=== PATIENT | female | born 1970 | race Caucasian/White ===

== ENCOUNTER 2020-05-26 18:38 | Inpatient (IN) | payer MEDICAID, SELFPAY ==
[2020-05-26 18:53] VITALS: RESP 16; BMI 30.2
--- NOTE | 2020-05-26 18:59 | ED_ITS ---
HPI - General Adult General: Chief complaint: Psychiatric Symptoms Stated complaint: HI/SI Time Seen by Provider: 05/26/20 18:52 Source: patient Mode of arrival: ambulatory Limitations: no limitations History of Present Illness: HPI narrative: Marcela is a 49-year-old female who comes in complaining of suicidal ideation. She states she wants to go out into the [place] and take her medicines with her and overdose on medication. She states that she is just tired of life and has a poor outlook on life. She denies having any other complaints or concerns. Review of Systems General: Reports: Other (Patient not cooperative for this portion of history) Physical Exam Const: COMMON NORMALS: no acute distress, patient oriented x3, no limitations, healthy appearing and well nourished GENERAL APPEARANCE: cooperative, well kempt and well developed HENMT: COMMON NORMALS: normocephalic, atraumatic, external ears normal, EAC's normal and Normal external nose present HEAD & SCALP: normal to inspection, normocephalic and atraumatic FACE & SINUS: normal facial exam and face symmetric NOSE: Normal external nose present and Normal nares present EXTERNAL EAR: Yes external ears normal EXTERNAL AUDITORY CANAL: EAC's normal MOUTH: Normal oral and palatal mucosa present, lip normal and tongue normal Eye: COMMON NORMALS: Equal, round and reactive pupils present and conjunctivae normal GENERAL EYE: appearance normal, both eyes and all related structures ALIGNMENT: Yes alignment normal PERIORBITAL: periorbital findings normal EYELID: eyelids normal CONJUNCTIVA: Yes conjunctivae normal SCLERA: sclerae normal PUPIL: Yes Equal, round and reactive pupils present Neck/C-Spine: COMMON NORMALS: full ROM, no lymphadenopathy, supple, no meningeal signs and no JVD GENERAL: Yes normal visual inspection and Yes trachea midline Chest: COMMONS NORMALS: normal inspection of the chest and normal palpation of entire chest wall Resp: COMMON NORMALS: normal respiratory effort, No retractions and No use of accessory muscles EFFORT & INSPECTION: Yes able to speak in complete sentences and Yes symmetric chest movement AUSCULTATION: no crackles, no rales, no rhonchi and no wheezes Cardio: COMMON NORMALS: no JVD, regular rate, regular rhythm, S1 normal heart sound present and S2 normal heart sound present RATE: regular rate RHYTHM: regular rhythm HEART SOUNDS: S1 normal heart sound present, S2 normal heart sound present, no click, no gallops, no murmurs, no rubs and abnormal split S2 GI: COMMON NORMALS: Soft to palpation and No hepatosplenomegaly present PALPATION: Yes Soft to palpation, No Tenderness to palpation present (GI), No Guarding due to palpation present (GI), No Rigid due to palpation, Yes No hepatosplenomegaly present, No Hernia present, No Palpable mass present and No Pulsatile mass present : COMMON NORMALS: Yes no CVA tenderness BLADDER/KIDNEY EXAM: Yes no CVA tenderness EXTERNAL FEMALE EXAM: No Hernia present Back/Pelvis: COMMON NORMALS: no CVA tenderness, thoracic and lumbar spine normal to inspection, no thoracic nor lumbar tenderness and thoraco-lumbar ROM normal Extremity: COMMON NORMALS: normal to inspection, full ROM, capillary refill normal, no joint enlargement, no clubbing, cyanosis or edema and no calf tenderness Neuro: COMMON NORMALS: patient oriented x3, CN's II-XII intact bilaterally, moves all extremities, no focal motor deficits and no sensory deficits noted MENINGEAL SIGNS: Yes no meningeal signs SPEECH: speech normal Psych: APPEARANCE: Yes well kempt Skin: COMMON NORMALS: no rashes or lesions noted, turgor normal, no jaundice, no petechiae and no mottling GENERAL SKIN EXAM: no rashes or lesions noted and turgor normal Course Vital Signs: Vital signs: Vital Signs Temperature 98.0 F 05/26/20 22:00 Pulse Rate 85 05/26/20 22:00 Respiratory Rate 17 05/26/20 22:00 Blood Pressure 111/75 05/26/20 22:00 Pulse Oximetry 97 05/26/20 22:00 MDM - General Adult MDM Narrative: Medical decision making narrative: I see no evidence of anything to limit the patient from going to the neuropsychiatric unit. The case was reviewed with Dr. Miner and he is agreeable to admission. Lab Data: Labs: Lab Results 05/26/20 05/26/20 05/26/20 Range/Units 19:12 19:15 19:15 WBC 12.5 H (4.0-10.0) 10^3/ uL RBC 3.97 L (4.1-5.3) 10^6/u L Hgb 12.0 (11.5-15.3) g/dL Hct 37.3 (37.0-47.0) % MCV 94.0 (81-99) fL MCH 30.2 (28.0-34.0) pg MCHC 32.2 (30.0-36.0) g/dL RDW 13.0 (12.1-15.1) % Plt Count 275 (130-400) 10^3/c mm MPV 11.2 H (7.4-10.4) fL Neut % (Auto) 65.2 % Lymph % (Auto) 22.1 % Marion % (Auto) 6.9 % Eos % (Auto) 4.7 % Baso % (Auto) 0.7 % Neut # (Auto) 8.16 H (1.8-7.7) 10^3/u L Lymph # (Auto) 2.8 (0.8-4.8) 10^3/u L Marion # (Auto) 0.9 (0.2-0.9) 10^3/u L Eos # (Auto) 0.6 (0.0-0.8) 10^3/u L Baso # (Auto) 0.1 (0.0-0.1) 10^3/u L Nucleated RBC % (a uto) 0 % Nucleated RBCs # 0.0 /100WBC PT 11.80 (10.5-13.3) SECO NDS INR 0.85 (0.8-1.2) Sodium (136-145) mmol/L Potassium (3.5-5.1) mmol/L Chloride (98-107) mmol/L Carbon Dioxide (22-29) mmol/L Anion Gap (5-19) BUN (6-20) mg/dL Creatinine (0.5-0.9) mg/dL GFR Calculation (90-130) mL/min Glucose (65-115) mg/dL Calculated Osmolal ity (285-295) mOsm/k g Calcium (8.5-10.5) mg/dL Total Bilirubin (0.15-1.2) mg/dL AST (0-32) U/L ALT (0-33) U/L Alkaline Phosphata se (35-105) IU/L Total Protein (6.6-8.7) g/dL Albumin (3.5-5.2) g/dL Globulin (1.3-4.6) g/dL TSH (0.27-4.20) uIU/ mL HCG, Qual (Negative) Salicylates (3-10) mg/dL Urine Opiates Scre en Negative (Negative) ng/mL Acetaminophen (10-30) ug/mL Ur Barbiturates Sc reen Negative (Negative) ng/mL Phenytoin (10-20) ug/mL Valproic Acid (50-100) ug/mL Carbamazepine (4.0-12.0) ug/mL Ur Phencyclidine S crn Negative (Negative) ng/mL Ur Amphetamines Sc reen Negative (Negative) ng/mL U Benzodiazepines Scrn Negative (Negative) ng/mL [place] (0.6-1.2) mmol/L Urine Cocaine Scre en Negative (Negative) ng/mL U Marijuana (THC) Screen Positive H (Negative) ng/mL Ethyl Alcohol (0-10) mg/dL 05/26/20 05/26/20 05/26/20 Range/Units 19:15 19:15 19:15 WBC (4.0-10.0) 10^3/ uL RBC (4.1-5.3) 10^6/u L Hgb (11.5-15.3) g/dL Hct (37.0-47.0) % MCV (81-99) fL MCH (28.0-34.0) pg MCHC (30.0-36.0) g/dL RDW (12.1-15.1) % Plt Count (130-400) 10^3/c mm MPV (7.4-10.4) fL Neut % (Auto) % Lymph % (Auto) % Marion % (Auto) % Eos % (Auto) % Baso % (Auto) % Neut # (Auto) (1.8-7.7) 10^3/u L Lymph # (Auto) (0.8-4.8) 10^3/u L Marion # (Auto) (0.2-0.9) 10^3/u L Eos # (Auto) (0.0-0.8) 10^3/u L Baso # (Auto) (0.0-0.1) 10^3/u L Nucleated RBC % (a uto) % Nucleated RBCs # /100WBC PT (10.5-13.3) SECO NDS INR (0.8-1.2) Sodium 138 (136-145) mmol/L Potassium 4.3 (3.5-5.1) mmol/L Chloride 106 (98-107) mmol/L Carbon Dioxide 22 (22-29) mmol/L Anion Gap 14.3 (5-19) BUN 19 (6-20) mg/dL Creatinine 1.1 H (0.5-0.9) mg/dL GFR Calculation 52.6 L (90-130) mL/min Glucose 90 (65-115) mg/dL Calculated Osmolal ity 282 L (285-295) mOsm/k g Calcium 8.9 (8.5-10.5) mg/dL Total Bilirubin 0.2 (0.15-1.2) mg/dL AST 21 (0-32) U/L ALT 25 (0-33) U/L Alkaline Phosphata se 117 H (35-105) IU/L Total Protein 7.0 (6.6-8.7) g/dL Albumin 4.6 (3.5-5.2) g/dL Globulin 2.4 (1.3-4.6) g/dL TSH 2.80 (0.27-4.20) uIU/ mL HCG, Qual Negative (Negative) Salicylates < 0.3 L (3-10) mg/dL Urine Opiates Scre en (Negative) ng/mL Acetaminophen < 5.0 L (10-30) ug/mL Ur Barbiturates Sc reen (Negative) ng/mL Phenytoin 0.8 L (10-20) ug/mL Valproic Acid 2.8 L (50-100) ug/mL Carbamazepine 2.0 L (4.0-12.0) ug/mL Ur Phencyclidine S crn (Negative) ng/mL Ur Amphetamines Sc reen (Negative) ng/mL U Benzodiazepines Scrn (Negative) ng/mL [place] 0.1 L (0.6-1.2) mmol/L Urine Cocaine Scre en (Negative) ng/mL U Marijuana (THC) Screen (Negative) ng/mL Ethyl Alcohol < 10 (0-10) mg/dL Discharge Plan Discharge Patient Disposition: Placed in Observation Admit Provider: Kristofer Miner Clinical Impression: Suicidal ideation Condition: Stable Discharge Date/Time: 05/26/20 21:41 Coding Level of Care Code ED Field Service Engineer for Chg Fwd Exam Comprehensive
[2020-05-26 19:17] VITALS: BP 114/74; PULSE 91; RESP 18; TEMP 36.6; O2SAT 98
[2020-05-26 19:32] LABS: Basophils # 0.1 10^3/uL (0.0-0.1); Basophils % 0.7 %; Eosinophils # 0.6 10^3/uL (0.0-0.8); Eosinophils % 4.7 %; Hematocrit 37.3 % (37.0-47.0); Lymphocytes # 2.8 10^3/uL (0.8-4.8); Lymphocytes % 22.1 %; Mean Corpuscular HGB Conc 32.2 g/dL (30.0-36.0); Mean Corpuscular Hemoglobin 30.2 pg (28.0-34.0); Mean Platelet Volume 11.2 fL (7.4-10.4); Monocytes # 0.9 10^3/uL (0.2-0.9); Monocytes % 6.9 %; Neutrophils # 8.16 10^3/uL (1.8-7.7); Neutrophils % 65.2 %; Nucleated Red Blood Cells % 0 %; Platelet Count 275 10^3/cmm (130-400); Red Blood Count 3.97 10^6/uL (4.1-5.3); White Blood Count 12.5 10^3/uL (4.0-10.0)
[2020-05-26 19:43] LABS: INR 0.85 (0.8-1.2)
[2020-05-26 19:50] LABS: Amphetamines Screen Urine Negative (Negative); Barbiturates Screen Urine Negative (Negative); Benzodiazepines Screen Urine Negative (Negative); Cocaine Screen Urine Negative (Negative); Opiate Screen Urine Negative (Negative); PCP Screen Urine Negative (Negative); THC Screen Urine Positive (Negative)
[2020-05-26 19:54] LABS: HCG, Serum Qual Negative (Negative)
[2020-05-26 19:59] LABS: Lithium 0.1 mmol/L (0.6-1.2)
[2020-05-26 20:08] LABS: Alanine Aminotransferase 25 U/L (0-33); Albumin Level 4.6 g/dL (3.5-5.2); Alkaline Phosphatase 117 IU/L (35-105); Anion Gap 14.3 (5-19); Aspartate Amino Transferase 21 U/L (0-32); Blood Urea Nitrogen 19 mg/dL (6-20); Calcium 8.9 mg/dL (8.5-10.5); Carbon Dioxide 22 mmol/L (22-29); Chloride 106 mmol/L (98-107); Globulin 2.4 g/dL (1.3-4.6); Glomerular Filtration Rate 52.6 mL/min (90-130); Glucose 90 mg/dL (65-115); Osmolality Calculated 282 mOsm/kg (285-295); Phenytoin Dilantin 0.8 ug/mL (10-20); Potassium 4.3 mmol/L (3.5-5.1); Sodium 138 mmol/L (136-145); Total Bilirubin 0.2 mg/dL (0.15-1.2); Valproic Acid Level 2.8 ug/mL (50-100)
[2020-05-26 20:18] LABS: Acetaminophen < 5.0 ug/mL (10-30); Alcohol Level < 10 mg/dL (0-10); Salicylate < 0.3 mg/dL (3-10)
[2020-05-26 20:26] VITALS: BP 95/69; PULSE 84; RESP 16; O2SAT 98
[2020-05-26] MEDS: LORazepam 1 mg Tablet PO (20:55)
[2020-05-26 21:28] VITALS: BP 95/62; PULSE 82; RESP 18; O2SAT 99
[2020-05-26 22:00] VITALS: BP 111/75; PULSE 85; RESP 17; TEMP 36.7; O2SAT 97
[2020-05-27 06:00] VITALS: BP 103/71; PULSE 85; RESP 20; TEMP 37.1; O2SAT 96
[2020-05-27] MEDS: escitalopram 10 mg Tablet 20 MG PO (08:46)
[2020-05-27] MEDS: meloxicam 7.5 mg tablet 15 MG PO (08:46)
[2020-05-27] MEDS: baclofen 10 mg Tablet 20 MG PO ×3 (08:46→22:04)
[2020-05-27] MEDS: gabapentin 300 mg Capsule 600 MG PO ×3 (08:46→22:02)
[2020-05-27] MEDS: risperiDONE 0.25 mg Tablet 0.5 MG PO ×2 (08:47→17:02)
[2020-05-27] MEDS: cholecalciferol (vitamin D3) 1,000 unit Tablet 1000 UNIT PO (08:47)
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
[2020-05-27 14:00] VITALS: BP 98/61; PULSE 78; RESP 20; TEMP 37.1; O2SAT 99
[2020-05-27 20:30] VITALS: BP 94/68; PULSE 76; RESP 17; TEMP 36.2; O2SAT 96
[2020-05-27] MEDS: trazodone 50 mg Tablet PO (22:04)
[2020-05-27] MEDS: hyDROXYzine 25 mg Capsule 50 MG PO (22:04)
[2020-05-27] MEDS: quetiapine 300 mg Tablet PO (22:04)
[2020-05-27] MEDS: acetaminophen 325 mg Tablet 650 MG PO (22:14)
[2020-05-28] MEDS: acetaminophen 325 mg Tablet 650 MG PO (03:50)
[2020-05-28] MEDS: hyDROXYzine 25 mg Capsule 50 MG PO (03:50)
[2020-05-28 06:00] VITALS: BP 108/70; PULSE 86; RESP 12; TEMP 36.4; O2SAT 95
[2020-05-28] MEDS: risperiDONE 0.25 mg Tablet 0.5 MG PO (08:18)
[2020-05-28] MEDS: gabapentin 300 mg Capsule 600 MG PO ×2 (08:18→13:34)
[2020-05-28] MEDS: cholecalciferol (vitamin D3) 1,000 unit Tablet 1000 UNIT PO (08:18)
[2020-05-28] MEDS: baclofen 10 mg Tablet 20 MG PO ×2 (08:18→13:35)
[2020-05-28] MEDS: meloxicam 7.5 mg tablet 15 MG PO (08:18)
[2020-05-28] MEDS: escitalopram 10 mg Tablet 20 MG PO (09:02)
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
[2020-05-28 13:22] VITALS: BP 108/70; PULSE 86; RESP 12; TEMP 36.4; O2SAT 95
--- NOTE | 2020-05-28 13:28 | PC.NURSE ---
PATIENT REPORTS MIGRAINE. SHE IS UNABLE TO CONTROL HER LEGS AND IS WALKING IN PLACE WE TALK. OFFERED TYLENOL 650 mg PO BUT SHE REFUSED ASKING FOR A HALDOL SHOT. PATENT WILL BE DISCHARGED WITHIN THE HOUR
--- NOTE | 2020-05-28 13:40 | PC.NURSE ---
MEDICATIONS GIVEN EARLY DUE TO DISCHARGE. PATIENT WAS DUE TO RECEIVE MEDS AT 1500 GABAPENTIN 60MG PO @1335 BACLOFEN 20MG PO@1335
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
== END 2020-05-28 14:23 | disposition home or self-care (01) | DRG 881 ==
LOC: ER 19:39 → NP 21:14
PROVIDERS: Emergency Medicine
DX: F32.9 Major depressive disorder, single episode, unspecified (principal); F15.20 Other stimulant dependence, uncomplicated; F17.210 Nicotine dependence, cigarettes, uncomplicated; F12.10 Cannabis abuse, uncomplicated
CPT/HCPCS: 12345; 36415; 80053; 80156; 80164; 80178; 80185; 80306; 80307; 84443; 84703; 85025; 85610; 99284; 99285

== ENCOUNTER 2020-05-28 18:44 | Inpatient (IN) | payer MEDICAID, SELFPAY ==
--- NOTE | 2020-05-28 18:52 | ECG_ITS ---
[facility] Test Date: 2020-05-28 Pat Name: Marcela Vann Department: Room: Gender: Female Genetic Technologist: : 1970 Requested By: Lilia Masters Order Number: [id number] Uri MD: Lindsay Tidwell M.D. Measurements Intervals [place] Rate: 71 P: 55 NV: 219 QRS: 65 QRSD: 93 T: 42 QT: 392 QTc: 428 Interpretive Statements SINUS RHYTHM WITH FIRST DEGREE AV BLOCK No previous ECG available for comparison Electronically Signed On 05-28-2020 23:38:16 CDT by Lindsay Tidwell M.D. [id number]
--- NOTE | 2020-05-28 19:00 | ED_ITS ---
HPI - Psych General: Chief Complaint: Psychiatric Symptoms Stated Complaint: SI Time Seen by Provider: 05/28/20 18:52 Source: patient and EMS Mode of arrival: EMS Limitations: no limitations History of Present Illness: HPI Narrative: Marcela is a nice 49-year-old female who comes in complaining of suicidal ideation. She states that she was released to early from the neuropsychiatric unit and still has thoughts of wanting to hurt and/or kill herself. Currently she states she is very anxious and she is wanting something for her anxiety. Review of Systems Const: Denies: fever(s), chills, body aches, fatigue, malaise or diaphoresis Eyes: Denies: change in vision, blurry vision, blind spots, photophobia, eye discharge or eye redness ENMT: Denies: throat pain, odynophagia, hoarseness, swelling of lips/tongue, oral sores, ear or mastoid pain, ear discharge, change in hearing or nasal discharge Card: Denies: chest pain, palpitations, irregular heart rhythm, edema, lightheadedness, syncope, pre-syncope, dyspnea on exertion or orthopnea Resp: Denies: dyspnea, productive cough, non-productive cough, wheezing, hemoptysis or chest congestion GI: Denies: abdominal pain, nausea, vomiting, hematemesis, coffee ground emesis, heartburn, diarrhea, constipation, GI cramping, hematochezia or melena : Denies: flank pain, dysuria, urinary frequency, urinary urgency or hematuria Musc: Denies: neck pain, back pain, extremity pain, extremity swelling, joint pain, joint swelling, joint redness, joint warmth or joint stiffness Skin/Breast: Denies: rash, pruritus, erythema, skin tenderness or jaundice Neuro: Denies: headache(s), numbness in extremities, weakness in extremities, sensory changes, lack of coordination, difficulty walking, dizziness, vertigo, confusion, Slurred speech present or seizure-like activity Tito/Lymph: Denies: easy bruising, easy bleeding, petechiae, purpura or enlarged lymph nodes All/Imm: Denies: urticaria, throat swelling, tongue swelling, facial swelling or acute wheezing [facility] [place] [facility] Female Reproductive History: Date of last menstrual period: 05/12/07 Physical Exam Const: COMMON NORMALS: no acute distress, patient oriented x3, no limitations, healthy appearing and well nourished GENERAL APPEARANCE: cooperative, well kempt and well developed HENMT: COMMON NORMALS: normocephalic, atraumatic, external ears normal, EAC's normal and Normal external nose present HEAD & SCALP: normal to inspection, normocephalic and atraumatic FACE & SINUS: normal facial exam and face symmetric NOSE: Normal external nose present and Normal nares present EXTERNAL EAR: Yes external ears normal EXTERNAL AUDITORY CANAL: EAC's normal MOUTH: Normal oral and palatal mucosa present, lip normal and tongue normal Eye: COMMON NORMALS: Equal, round and reactive pupils present and conjunctivae normal GENERAL EYE: appearance normal, both eyes and all related structures ALIGNMENT: Yes alignment normal PERIORBITAL: periorbital findings normal EYELID: eyelids normal CONJUNCTIVA: Yes conjunctivae normal SCLERA: sclerae normal PUPIL: Yes Equal, round and reactive pupils present Neck/C-Spine: COMMON NORMALS: full ROM, no lymphadenopathy, supple, no meningeal signs and no JVD GENERAL: Yes normal visual inspection and Yes trachea midline Chest: COMMONS NORMALS: normal inspection of the chest and normal palpation of entire chest wall Resp: COMMON NORMALS: normal respiratory effort, No retractions and No use of accessory muscles EFFORT & INSPECTION: Yes able to speak in complete sentences and Yes symmetric chest movement AUSCULTATION: no crackles, no rales, no rhonchi and no wheezes Cardio: COMMON NORMALS: no JVD, regular rate, regular rhythm, S1 normal heart sound present and S2 normal heart sound present RATE: regular rate RHYTHM: regular rhythm HEART SOUNDS: S1 normal heart sound present, S2 normal heart sound present, no click, no gallops, no murmurs, no rubs and abnormal split S2 GI: COMMON NORMALS: Soft to palpation and No hepatosplenomegaly present PALPATION: Yes Soft to palpation, No Tenderness to palpation present (GI), No Guarding due to palpation present (GI), No Rigid due to palpation, Yes No hepatosplenomegaly present, No Hernia present, No Palpable mass present and No Pulsatile mass present : COMMON NORMALS: Yes no CVA tenderness BLADDER/KIDNEY EXAM: Yes no CVA tenderness EXTERNAL FEMALE EXAM: No Hernia present Back/Pelvis: COMMON NORMALS: no CVA tenderness, thoracic and lumbar spine normal to inspection, no thoracic nor lumbar tenderness and thoraco-lumbar ROM normal Extremity: COMMON NORMALS: normal to inspection, full ROM, capillary refill normal, no joint enlargement, no clubbing, cyanosis or edema and no calf tenderness Neuro: COMMON NORMALS: patient oriented x3, CN's II-XII intact bilaterally, moves all extremities, no focal motor deficits and no sensory deficits noted MENINGEAL SIGNS: Yes no meningeal signs SPEECH: speech normal Psych: COMMON NORMALS: mental status grossly normal, Normal thought process present, cooperative, normal affect, speech normal and activity/motor behavior normal APPEARANCE: Yes well kempt SPEECH: Yes normal speech THOUGHT PROCESS: Normal thought process present Skin: COMMON NORMALS: no rashes or lesions noted, turgor normal, no jaundice, no petechiae and no mottling GENERAL SKIN EXAM: no rashes or lesions noted and turgor normal MDM - Psych MDM Narrative: Medical decision making narrative: 1999 - The case was reviewed with Dr. Johnson, he would like to see the patient in telemedicine conference as she was just discharged from the neuropsychiatric unit today. Lab Data: Labs: Lab Results 05/28/20 05/28/20 05/28/20 Range/Units 19:00 19:05 19:05 WBC 12.2 H (4.0-10.0) 10^3/ uL RBC 3.99 L (4.1-5.3) 10^6/u L Hgb 12.2 (11.5-15.3) g/dL Hct 38.3 (37.0-47.0) % MCV 96.0 (81-99) fL MCH 30.6 (28.0-34.0) pg MCHC 31.9 (30.0-36.0) g/dL RDW 13.0 (12.1-15.1) % Plt Count 279 (130-400) 10^3/c mm MPV 10.8 H (7.4-10.4) fL Neut % (Auto) 66.6 % Lymph % (Auto) 22.5 % [place] % (Auto) 6.3 % Eos % (Auto) 3.6 % Baso % (Auto) 0.7 % Neut # (Auto) 8.13 H (1.8-7.7) 10^3/u L Lymph # (Auto) 2.8 (0.8-4.8) 10^3/u L [place] # (Auto) 0.8 (0.2-0.9) 10^3/u L Eos # (Auto) 0.4 (0.0-0.8) 10^3/u L Baso # (Auto) 0.1 (0.0-0.1) 10^3/u L Nucleated RBC % (a uto) 0 % Nucleated RBCs # 0.0 /100WBC Sodium 136 (136-145) mmol/L Potassium 4.0 (3.5-5.1) mmol/L Chloride 105 (98-107) mmol/L Carbon Dioxide 19 L (22-29) mmol/L Anion Gap 16.0 (5-19) BUN 23 H (6-20) mg/dL Creatinine 0.8 (0.5-0.9) mg/dL GFR Calculation 75.9 L (90-130) mL/min Glucose 96 (65-115) mg/dL Calculated Osmolal ity 279 L (285-295) mOsm/k g Calcium 8.6 (8.5-10.5) mg/dL Total Bilirubin 0.2 (0.15-1.2) mg/dL AST 17 (0-32) U/L ALT 19 (0-33) U/L Alkaline Phosphata se 115 H (35-105) IU/L Total Protein 6.8 (6.6-8.7) g/dL Albumin 4.3 (3.5-5.2) g/dL Globulin 2.5 (1.3-4.6) g/dL TSH 3.36 (0.27-4.20) uIU/ mL HCG, Qual (Negative) Salicylates < 0.3 L (3-10) mg/dL Urine Opiates Scre en Negative (Negative) ng/mL Acetaminophen < 5.0 L (10-30) ug/mL Ur Barbiturates Sc reen Negative (Negative) ng/mL Phenytoin 0.8 L (10-20) ug/mL Valproic Acid 2.8 L (50-100) ug/mL Carbamazepine 2.0 L (4.0-12.0) ug/mL Ur Phencyclidine S crn Negative (Negative) ng/mL Ur Amphetamines Sc reen Negative (Negative) ng/mL U Benzodiazepines Scrn Negative (Negative) ng/mL [place] (0.6-1.2) mmol/L Urine Cocaine Scre en Negative (Negative) ng/mL U Marijuana (THC) Screen Negative (Negative) ng/mL Ethyl Alcohol < 10 (0-10) mg/dL 05/28/20 05/28/20 Range/Units 19:05 19:05 WBC (4.0-10.0) 10^3/ uL RBC (4.1-5.3) 10^6/u L Hgb (11.5-15.3) g/dL Hct (37.0-47.0) % MCV (81-99) fL MCH (28.0-34.0) pg MCHC (30.0-36.0) g/dL RDW (12.1-15.1) % Plt Count (130-400) 10^3/c mm MPV (7.4-10.4) fL Neut % (Auto) % Lymph % (Auto) % [place] % (Auto) % Eos % (Auto) % Baso % (Auto) % Neut # (Auto) (1.8-7.7) 10^3/u L Lymph # (Auto) (0.8-4.8) 10^3/u L [place] # (Auto) (0.2-0.9) 10^3/u L Eos # (Auto) (0.0-0.8) 10^3/u L Baso # (Auto) (0.0-0.1) 10^3/u L Nucleated RBC % (a uto) % Nucleated RBCs # /100WBC Sodium (136-145) mmol/L Potassium (3.5-5.1) mmol/L Chloride (98-107) mmol/L Carbon Dioxide (22-29) mmol/L Anion Gap (5-19) BUN (6-20) mg/dL Creatinine (0.5-0.9) mg/dL GFR Calculation (90-130) mL/min Glucose (65-115) mg/dL Calculated Osmolal ity (285-295) mOsm/k g Calcium (8.5-10.5) mg/dL Total Bilirubin (0.15-1.2) mg/dL AST (0-32) U/L ALT (0-33) U/L Alkaline Phosphata se (35-105) IU/L Total Protein (6.6-8.7) g/dL Albumin (3.5-5.2) g/dL Globulin (1.3-4.6) g/dL TSH (0.27-4.20) uIU/ mL HCG, Qual Negative (Negative) Salicylates (3-10) mg/dL Urine Opiates Scre en (Negative) ng/mL Acetaminophen (10-30) ug/mL Ur Barbiturates Sc reen (Negative) ng/mL Phenytoin (10-20) ug/mL Valproic Acid (50-100) ug/mL Carbamazepine (4.0-12.0) ug/mL Ur Phencyclidine S crn (Negative) ng/mL Ur Amphetamines Sc reen (Negative) ng/mL U Benzodiazepines Scrn (Negative) ng/mL [place] 0.1 L (0.6-1.2) mmol/L Urine Cocaine Scre en (Negative) ng/mL U Marijuana (THC) Screen (Negative) ng/mL Ethyl Alcohol (0-10) mg/dL Discharge Plan Discharge Admit Provider: Yemi Johnson Discharge Date/Time: 05/28/20 21:31 Coding Level of Care Code ED Document Management Specialist for Chg Fwd Exam Comprehensive
[2020-05-28 19:10] LABS: Basophils # 0.1 10^3/uL (0.0-0.1); Basophils % 0.7 %; Eosinophils # 0.4 10^3/uL (0.0-0.8); Eosinophils % 3.6 %; Hematocrit 38.3 % (37.0-47.0); Hemoglobin 12.2 g/dL (11.5-15.3); Lymphocytes # 2.8 10^3/uL (0.8-4.8); Lymphocytes % 22.5 %; Mean Corpuscular HGB Conc 31.9 g/dL (30.0-36.0); Mean Corpuscular Hemoglobin 30.6 pg (28.0-34.0); Mean Platelet Volume 10.8 fL (7.4-10.4); Monocytes # 0.8 10^3/uL (0.2-0.9); Monocytes % 6.3 %; Neutrophils # 8.13 10^3/uL (1.8-7.7); Neutrophils % 66.6 %; Nucleated Red Blood Cells % 0 %; Platelet Count 279 10^3/cmm (130-400); Red Blood Count 3.99 10^6/uL (4.1-5.3); White Blood Count 12.2 10^3/uL (4.0-10.0)
[2020-05-28 19:16] VITALS: BP 113/58; PULSE 84; RESP 16; O2SAT 99
[2020-05-28 19:38] LABS: Amphetamines Screen Urine Negative (Negative); Barbiturates Screen Urine Negative (Negative); Benzodiazepines Screen Urine Negative (Negative); Cocaine Screen Urine Negative (Negative); Opiate Screen Urine Negative (Negative); PCP Screen Urine Negative (Negative); THC Screen Urine Negative (Negative)
[2020-05-28 19:41] LABS: HCG, Serum Qual Negative (Negative)
[2020-05-28 19:45] LABS: Lithium 0.1 mmol/L (0.6-1.2)
[2020-05-28 19:56] LABS: Alanine Aminotransferase 19 U/L (0-33); Albumin Level 4.3 g/dL (3.5-5.2); Alkaline Phosphatase 115 IU/L (35-105); Aspartate Amino Transferase 17 U/L (0-32); Blood Urea Nitrogen 23 mg/dL (6-20); Calcium 8.6 mg/dL (8.5-10.5); Carbon Dioxide 19 mmol/L (22-29); Chloride 105 mmol/L (98-107); Globulin 2.5 g/dL (1.3-4.6); Glomerular Filtration Rate 75.9 mL/min (90-130); Glucose 96 mg/dL (65-115); Osmolality Calculated 279 mOsm/kg (285-295); Phenytoin Dilantin 0.8 ug/mL (10-20); Sodium 136 mmol/L (136-145); Thyroid Stimulating Hormone 3.36 uIU/mL (0.27-4.20); Total Bilirubin 0.2 mg/dL (0.15-1.2); Total Protein 6.8 g/dL (6.6-8.7); Valproic Acid Level 2.8 ug/mL (50-100)
[2020-05-28 20:04] LABS: Acetaminophen < 5.0 ug/mL (10-30); Alcohol Level < 10 mg/dL (0-10); Salicylate < 0.3 mg/dL (3-10)
--- NOTE | 2020-05-28 20:10 | PC.NURSE ---
DR LOJA GAVE VERBAL ORDER AT 1930 TO HOLD ON ATIVAN UNTIL SEEN BY DR. CASTAÑEDA.
[2020-05-28 21:29] VITALS: RESP 16
[2020-05-28 21:41] VITALS: BP 115/82; PULSE 76; RESP 19; TEMP 36.8; O2SAT 97
--- NOTE | 2020-05-28 21:58 | PC.NURSE ---
Receiving services through [facility].
[2020-05-28 22:00] VITALS: BP 115/82; PULSE 76; RESP 19; TEMP 36.8; O2SAT 97
[2020-05-28] MEDS: hyDROXYzine 25 mg Capsule 50 MG PO (22:30)
[2020-05-28] MEDS: OLANZapine 5 mg ODT PO (22:32)
[2020-05-29] MEDS: haloperidol 5 mg Tablet PO (02:20)
--- NOTE | 2020-05-29 02:22 | PC.NURSE ---
patient rocking and crying. requesting somthing to help with anxiety. earlier zyprexa was ineffective. Administered 5mg Haldol.
[2020-05-29 06:00] VITALS: BP 108/74; PULSE 88; RESP 19; TEMP 36.7; O2SAT 94
[2020-05-29] MEDS: baclofen 10 mg Tablet 20 MG PO ×3 (09:10→22:41)
[2020-05-29] MEDS: escitalopram 10 mg Tablet 20 MG PO (09:10)
[2020-05-29] MEDS: gabapentin 300 mg Capsule 600 MG PO ×3 (09:10→22:39)
[2020-05-29] MEDS: meloxicam 7.5 mg tablet 15 MG PO (09:10)
[2020-05-29] MEDS: risperiDONE 1 mg Tablet 0.5 MG PO ×2 (09:10→16:59)
[2020-05-29] MEDS: cholecalciferol (vitamin D3) 1,000 unit Tablet 1000 UNIT PO (09:10)
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
[2020-05-29 14:00] VITALS: BP 134/86; PULSE 78; RESP 18; TEMP 36.8
[2020-05-29] MEDS: OLANZapine 5 mg ODT PO ×2 (15:59→22:36)
--- NOTE | 2020-05-29 16:00 | PC.NURSE ---
PRN ZYPREXA ZYDIS ZYPREXA ZYDIS 5MG PO PER PATIENT C/O ANXIETY/AGITATION. WILL CONTINUE TO MONITOR FOR MEDICATION EFFECTIVENESS.
--- NOTE | 2020-05-29 17:00 | PC.NURSE ---
PRN ZYPREXA ZYDIS FOLLOW UP MEDICATION EFFECTIVE. NO FURTHER C/O AGITATION/ANXIETY.
[2020-05-29 22:00] VITALS: PULSE 68; RESP 16; TEMP 36.6; O2SAT 92
[2020-05-29] MEDS: quetiapine 300 mg Tablet PO (22:40)
[2020-05-29] MEDS: hyDROXYzine 25 mg Capsule 50 MG PO (22:41)
[2020-05-30 06:00] VITALS: BP 94/65; PULSE 73; RESP 16; TEMP 36.8; O2SAT 92
[2020-05-30] MEDS: acetaminophen 325 mg Tablet 650 MG PO ×2 (07:56→14:39)
[2020-05-30] MEDS: baclofen 10 mg Tablet 20 MG PO ×3 (07:57→20:41)
[2020-05-30] MEDS: meloxicam 7.5 mg tablet 15 MG PO (07:57)
[2020-05-30] MEDS: gabapentin 300 mg Capsule 600 MG PO ×3 (07:57→20:41)
[2020-05-30] MEDS: risperiDONE 1 mg Tablet 0.5 MG PO (07:58)
[2020-05-30] MEDS: cholecalciferol (vitamin D3) 1,000 unit Tablet 1000 UNIT PO (07:58)
[2020-05-30] MEDS: escitalopram 10 mg Tablet 20 MG PO (07:58)
[2020-05-30] MEDS: paliperidone ER 6 mg Tablet PO (10:30)
[2020-05-30] MEDS: OLANZapine 5 mg ODT PO ×2 (10:35→17:37)
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
[2020-05-30 13:40] VITALS: BP 136/89; PULSE 98; RESP 18; TEMP 36.3
--- NOTE | 2020-05-30 17:39 | PC.NURSE ---
Patient Behavior Patient was at nurses station yelling that we were making fun of her. She called staff a bitch and punched the glass. Given Zypreza Zydis 5 mg po for agitation.
[2020-05-30 20:15] VITALS: BP 118/72; PULSE 79; RESP 14; TEMP 37.1; O2SAT 95
[2020-05-30] MEDS: quetiapine 300 mg Tablet PO (20:41)
[2020-05-30] MEDS: hyDROXYzine 25 mg Capsule 50 MG PO (20:41)
--- NOTE | 2020-05-30 21:47 | PC.NURSE ---
PRN VISTARIL ADMINISTERED VISTARIL 50MG PO FOR INCREASING ANXIETY. WILL MONITOR FOR MEDICATION EFFECTIVENESS.
[2020-05-31] MEDS: acetaminophen 325 mg Tablet 650 MG PO ×2 (05:04→09:13)
[2020-05-31] MEDS: OLANZapine 5 mg ODT PO ×2 (05:05→16:02)
--- NOTE | 2020-05-31 05:08 | PC.NURSE ---
PRN ZYPREXA ZYDIS ADMINISTERED ZYPREXA ZYDIS 5MG SUBLINGUAL FOR PT C/O INCREASING ANXIETY. WILL MONITOR FOR MEDICATION EFFECTIVENESS.
[2020-05-31 06:00] VITALS: BP 116/83; PULSE 74; RESP 15; TEMP 36.1; O2SAT 94
[2020-05-31] MEDS: meloxicam 7.5 mg tablet 15 MG PO (08:51)
[2020-05-31] MEDS: baclofen 10 mg Tablet 20 MG PO ×3 (08:52→21:13)
[2020-05-31] MEDS: escitalopram 10 mg Tablet 20 MG PO (08:52)
[2020-05-31] MEDS: gabapentin 300 mg Capsule 600 MG PO ×3 (08:52→21:13)
[2020-05-31] MEDS: paliperidone ER 6 mg Tablet PO (08:52)
[2020-05-31] MEDS: cholecalciferol (vitamin D3) 1,000 unit Tablet 1000 UNIT PO (08:52)
[2020-05-31] MEDS: LORazepam 2 mg/mL INJ 1 mL IM (13:35)
[2020-05-31] MEDS: haloperidol inj 5 mg/mL INJ 1 mL IM (13:35)
--- NOTE | 2020-05-31 13:35 | PC.NURSE ---
PRN ATIVAN, HALDOL, BENADRYL ATIVAN 2MG IM AND HALDOL 5MG IM TO LEFT DELTOID AND BENADRYL 50MG IM TO RIGHT DELTOID FOR SEVERE AGITATION. PATIENT GOT MAD THAT SHE DIDNT GET FOOD WHEN IT WASNT SNACK TIME. PATIENT STARTED THROWING BEDSIDE TABLE AND MATTRESS OUT OF PATIENTS ROOM. CODE 10 WAS CALLED. STAFF ENTERED PATIENTS ROOM, PATIENT CHARGED AT CHARGE NURSE. PATIENT WAS PLACED IN S.A.F.E HOLD TO PROTECT STAFF. PATIENT THEN BECAME COOPERATIVE AND SAT ON BED AND TOOK MEDICATION COOPERATIVELY. WILL CONTINUE TO MONITOR FOR MEDICATION EFFECTIVENESS.
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
[2020-05-31] MEDS: diphenhydrAMINE 50 mg/mL SDV 1mL IM (13:45)
[2020-05-31 14:00] VITALS: BP 109/76; PULSE 81; RESP 18; TEMP 36.4; O2SAT 96
--- NOTE | 2020-05-31 14:30 | PC.NURSE ---
PRN ATIVAN, HALDOL AND BENADRYL FOLLOW UP MEDICATION EFFECTIVE. NO S/S OF AGITATION/ANXIETY.
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
--- NOTE | 2020-05-31 16:02 | PC.NURSE ---
Addendum entered by Stephanie Stephens LPN 05/31/20 16:48: medication effective. no further c/o agitation/anxiety. Original Note: PRN ZYPREXA ZYDIS ZYPREXA ZYDIS 5MG PO PER PATIENT C/O AGITATION/ANXIETY. WILL CONTINUE TO MONITOR FOR MEDICATION EFFECTIVENESS.
[2020-05-31 20:16] VITALS: RESP 22; TEMP 37
[2020-05-31] MEDS: quetiapine 300 mg Tablet PO (21:13)
[2020-06-01 06:00] VITALS: BP 112/83; PULSE 90; RESP 18; TEMP 37.1; O2SAT 94
[2020-06-01] MEDS: gabapentin 300 mg Capsule 600 MG PO ×3 (08:27→21:10)
[2020-06-01] MEDS: cholecalciferol (vitamin D3) 1,000 unit Tablet 1000 UNIT PO (08:27)
[2020-06-01] MEDS: paliperidone ER 6 mg Tablet PO (08:28)
[2020-06-01] MEDS: escitalopram 10 mg Tablet 20 MG PO (08:28)
[2020-06-01] MEDS: meloxicam 7.5 mg tablet 15 MG PO (08:28)
[2020-06-01] MEDS: baclofen 10 mg Tablet 20 MG PO ×3 (08:28→21:10)
[2020-06-01] MEDS: OLANZapine 5 mg ODT PO (09:33)
--- NOTE | 2020-06-01 09:35 | PC.NURSE ---
Addendum entered by Nini Whittington LPN 06/01/20 11:12: PRN MED EFFECTIVE NO FURTHER C/O AGITATION Original Note: PRN ZYPREXA ZYDIS 5 MG GIVEN PO PER PT C/O STATED AGITATION. PT ASKS FOR SHOTS OFTEN. WILL CONT TO MONITOR
[2020-06-01 13:46] VITALS: BP 123/83; PULSE 73; RESP 18; TEMP 36.8; O2SAT 97
[2020-06-01] MEDS: paliperidone palmitate 234 mg Syringe IM (15:24)
--- NOTE | 2020-06-01 15:24 | PC.NURSE ---
INVROSANNE SUSTENNA 234 MG GIVEN IM ORDERED BY PHYSICIAN. INJECTION GIVEN IN LEFT DELTOID. PT EDUCATED ON MED & VERBALIZED UNDERSTANDING. WILL CONT TO MONITOR INJECTION SITE FOR ANY REDNESS, SWELLING, OR IRRITATION. LOT [id number] EXP
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
[2020-06-01] MEDS: acetaminophen 325 mg Tablet 650 MG PO (16:43)
[2020-06-01] MEDS: haloperidol 5 mg Tablet PO (16:44)
[2020-06-01] MEDS: LORazepam 2 mg Tablet PO (16:44)
[2020-06-01 20:03] VITALS: BP 124/86; PULSE 98; RESP 17; TEMP 36.6; O2SAT 96
[2020-06-01] MEDS: quetiapine 300 mg Tablet PO (21:10)
[2020-06-02 06:00] VITALS: BP 111/72; PULSE 69; RESP 19; TEMP 36.9; O2SAT 95
[2020-06-02] MEDS: paliperidone ER 6 mg Tablet PO (08:28)
[2020-06-02] MEDS: meloxicam 7.5 mg tablet 15 MG PO (08:28)
[2020-06-02] MEDS: cholecalciferol (vitamin D3) 1,000 unit Tablet 1000 UNIT PO (08:28)
[2020-06-02] MEDS: gabapentin 300 mg Capsule 600 MG PO ×2 (08:28→14:10)
[2020-06-02] MEDS: escitalopram 10 mg Tablet 20 MG PO (08:28)
[2020-06-02] MEDS: baclofen 10 mg Tablet 20 MG PO ×2 (08:28→14:10)
[2020-06-02] MEDS: acetaminophen 325 mg Tablet 650 MG PO (08:29)
[2020-06-02] MEDS: OLANZapine 5 mg ODT PO (12:11)
--- NOTE | 2020-06-02 12:11 | PC.NURSE ---
PRN ZYPREXA ZYDIS 5 MG GIVEN PO PER PT C/O STATED AGITATION.
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
[2020-06-02 15:56] VITALS: BP 111/72; PULSE 69; RESP 19; TEMP 36.9; O2SAT 95
[2020-06-02 15:57] VITALS: BP 111/72; PULSE 69; RESP 19; TEMP 36.9; O2SAT 95
--- NOTE | 2020-06-08 08:55 | PC.SOCIAL ---
Working on authorization of Invega Sustenna 156mg injection with Kay at [facility] pharmacy. Added diagnoses to Cover My Njini. She also needed Medicaid to be called at [phone], offered diagnoses and went through Medication list. Was told that they would only cover 2 atypical antipsychotics and she was ordered 3; Rexulti, quetiapine, and Invega Sustenna. They said to speak to Dr. Johnson to see if she had to have all 3 and if not to discontinue 1 and let the pharmacy know. Spoke to Dr. Johnson and he said to discontinue to Rexaura. Informed Kay at the pharmacy of this.
== END 2020-06-02 16:03 | disposition home or self-care (01) | DRG 885 ==
LOC: ER 18:54 → NP 21:20
PROVIDERS: Emergency Medicine; Admitting Provider Psychiatry & Neurology Psychiatry; Visit Provider Psychiatry & Neurology Psychiatry
DX: F20.9 Schizophrenia, unspecified (principal); F15.20 Other stimulant dependence, uncomplicated; R45.851 Suicidal ideations; F32.9 Major depressive disorder, single episode, unspecified; F12.10 Cannabis abuse, uncomplicated; E66.9 Obesity, unspecified; Z68.30 Body mass index [BMI] 30.0-30.9, adult
CPT/HCPCS: 12345; 80053; 80156; 80164; 80178; 80185; 80306; 80307; 84443; 84703; 85025; 93005; 96372; 99284; 99285; J1200; J1630; J2060

== ENCOUNTER 2020-11-30 12:02 | Inpatient (IN) | payer MEDICAID, SELFPAY ==
[2020-11-30] VITALS (8 sets, daily range): BP systolic 106–137; BP diastolic 70–91; PULSE 86–113; RESP 16–20; TEMP 36.3–36.8; O2SAT 95–97; BMI 32.0
--- NOTE | 2020-11-30 12:09 | ECG_ITS ---
[facility] Test Date: 2020-11-30 Pat Name: Marcela Vann Department: Room: Gender: Female Superintendent Storage Area: : [id number] Requested By: Rafa Garrett Order Number: [id number] Grewal MD: Annelise Hirsch M.D. Measurements Intervals [place] Rate: 88 P: 49 KS: 200 QRS: 35 QRSD: 84 T: 30 QT: 342 QTc: 415 Interpretive Statements SINUS RHYTHM Compared to ECG 05/28/2020 19:32:53 First degree AV block no longer present Electronically Signed On 11-30-2020 20:03:59 LOSS PREVENTION AGENT by Annelise Hirsch M.D. [id number]
--- NOTE | 2020-11-30 12:38 | PC.PHAR ---
pt states she is unsure of the names of her medications-pt states she hasnt taken any meds for a few days-et med history shows meds last filled on 10/18/2020 30d/s for trazodone 50mg,alendronate 70mg,baclofen 20mg,carbamazepine 200mg,gabapentin 300mg, risperidone 2mg
--- NOTE | 2020-11-30 12:44 | W.ED.PSYCH ---
HPI - Psych General: Chief Complaint: Psychiatric Symptoms Stated Complaint: SI History of Present Illness: HPI Narrative: The patient is a 49-year-old female with past medical history of schizophrenia, depression, and methamphetamine abuse. She comes to the ER complaining of increased voices which are telling her they are coming to get her. She says because of this she has felt suicidal and has wrapped a rope around her neck through the night and had other thoughts of overdosing on medications. She admits suicidal ideations in the emergency room. Denies drug and alcohol abuse MD complaint: suicidal ideation and feels depressed Associated symptoms: Deny depression Review of Systems General: Reports: 10 or more systems reviewed and unremarkable except in HPI and below Const: Denies: fatigue Eyes: Denies: change in vision, blurry vision or eye redness ENMT: Denies: throat pain, swelling of lips/tongue, ear or mastoid pain or nasal congestion Card: Denies: chest pain, palpitations, irregular heart rhythm, edema, dyspnea on exertion or orthopnea Resp: Denies: dyspnea, productive cough or non-productive cough GI: Denies: abdominal pain, diarrhea or GI cramping : Denies: flank pain, difficulty voiding, urinary frequency or urinary urgency Musc: Denies: neck pain, back pain, extremity pain, joint pain, joint redness, limited range of motion or muscle weakness Skin/Breast: Denies: rash, pruritus, erythema, skin pain or skin tenderness Neuro: Denies: headache(s), numbness in extremities, weakness in extremities, sensory changes, difficulty walking, dizziness, confusion or Slurred speech present Psych: Denies: anxiety or depression Endo: Denies: polyuria All/Imm: Denies: urticaria, throat swelling or tongue swelling PFSH ED PFSH: Medical History (Updated 11/30/20 @ 17:09 by Rafa Garrett MD) Schizophrenia Female Reproductive History: Date of last menstrual period: 05/12/07 Physical Exam Const: COMMON NORMALS: no acute distress, average body habitus, patient oriented x3, no limitations, healthy appearing, alert and well nourished GENERAL APPEARANCE: cooperative, comfortable, well kempt and well developed ORIENTATION/CONSCIOUSNESS: Yes awake, Yes oriented to person, Yes oriented to place and Yes oriented to time HENMT: COMMON NORMALS: normocephalic, external ears normal and Normal external nose present HEAD & SCALP: normal to inspection and normocephalic NOSE: Normal external nose present EXTERNAL EAR: Yes external ears normal MOUTH: Normal oral and palatal mucosa present THROAT: posterior oropharynx normal Eye: COMMON NORMALS: Equal, round and reactive pupils present and EOMs intact bilaterally GENERAL EYE: appearance normal, both eyes and all related structures PUPIL: Yes Equal, round and reactive pupils present Neck/C-Spine: COMMON NORMALS: full ROM, no lymphadenopathy, no meningeal signs and no JVD GENERAL: Yes normal visual inspection Lymph: LYMPHATIC: no lymphadenopathy noted Chest: COMMONS NORMALS: normal inspection of the chest and normal palpation of entire chest wall Resp: COMMON NORMALS: normal respiratory effort, No retractions, No use of accessory muscles, clear to auscultation bilaterally and percussion normal EFFORT & INSPECTION: Yes able to speak in complete sentences AUSCULTATION: clear to auscultation bilaterally PERCUSSION: percussion normal Cardio: COMMON NORMALS: no JVD, regular rate, regular rhythm, S1 normal heart sound present, S2 normal heart sound present and Peripheral pulses 2+ throughout RATE: regular rate RHYTHM: regular rhythm HEART SOUNDS: S1 normal heart sound present and S2 normal heart sound present PERIPHERAL PULSES: Peripheral pulses 2+ throughout GI: COMMON NORMALS: Normal to inspection, nondistended, normoactive bowel sounds present, Soft to palpation, non-tender and no masses INSPECTION: Yes normal to inspection PALPATION: Yes Soft to palpation : COMMON NORMALS: Yes no CVA tenderness BLADDER/KIDNEY EXAM: Yes no CVA tenderness Back/Pelvis: COMMON NORMALS: no CVA tenderness, thoracic and lumbar spine normal to inspection, no thoracic nor lumbar tenderness and thoraco-lumbar ROM normal Extremity: COMMON NORMALS: normal to inspection, full ROM, capillary refill normal, no joint enlargement and no pedal edema GENERAL: Yes normal exam except as noted Neuro: COMMON NORMALS: patient oriented x3, CN's II-XII intact bilaterally, moves all extremities, no focal motor deficits, no sensory deficits noted and gait normal SENSORIUM/ORIENTATION: Yes alert, Yes oriented to person, Yes oriented to place and Yes oriented to time MENINGEAL SIGNS: Yes no meningeal signs Psych: COMMON NORMALS: mental status grossly normal, Normal thought process present, cooperative, normal affect and speech normal APPEARANCE: Yes well kempt ATTITUDE: Yes calm SPEECH: Yes normal speech THOUGHT PROCESS: Normal thought process present Skin: COMMON NORMALS: no rashes or lesions noted GENERAL SKIN EXAM: no rashes or lesions noted MDM - Psych MDM Narrative: Medical decision making narrative: The patient came in complaining of suicidal ideations and was wrapping ropes around her neck last night and also plans to overdose. In the ER she admits active suicidal ideations. She was medically cleared and will be admitted to Dr. Chauhan who accepts her care. Lab Data: Labs: Lab Results 11/30/20 11/30/20 11/30/20 Range/Units 12:46 12:46 15:33 WBC 10.9 H (4.0-10.0) 10^3/ uL RBC 4.89 (4.1-5.3) 10^6/u L Hgb 14.7 (11.5-15.3) g/dL Hct 47.3 H (37.0-47.0) % MCV 96.7 (81-99) fL MCH 30.1 (28.0-34.0) pg MCHC 31.1 (30.0-36.0) g/dL RDW 12.4 (12.1-15.1) % Plt Count 297 (130-400) 10^3/c mm MPV 10.7 H (7.4-10.4) fL Neut % (Auto) 71.9 % Lymph % (Auto) 19.4 % Florence % (Auto) 6.0 % Eos % (Auto) 1.7 % Baso % (Auto) 0.6 % Neut # (Auto) 7.85 H (1.8-7.7) 10^3/u L Lymph # (Auto) 2.1 (0.8-4.8) 10^3/u L Florence # (Auto) 0.7 (0.2-0.9) 10^3/u L Eos # (Auto) 0.2 (0.0-0.8) 10^3/u L Baso # (Auto) 0.1 (0.0-0.1) 10^3/u L Nucleated RBC % (a uto) 0 % Nucleated RBCs # 0.0 /100WBC Sodium (136-145) mmol/L Potassium (3.5-5.1) mmol/L Chloride (98-107) mmol/L Carbon Dioxide (22-29) mmol/L Anion Gap (5-19) BUN (6-20) mg/dL Creatinine (0.5-0.9) mg/dL GFR Calculation (90-130) mL/min Glucose (65-115) mg/dL Calculated Osmolal ity (285-295) mOsm/k g Calcium (8.5-10.5) mg/dL Total Bilirubin (0.15-1.2) mg/dL AST (0-32) U/L ALT (0-33) U/L Alkaline Phosphata se (35-105) IU/L Total Protein (6.6-8.7) g/dL Albumin (3.5-5.2) g/dL Globulin (1.3-4.6) g/dL TSH (0.27-4.20) uIU/ mL Urine Color Yellow (Yellow) Urine Appearance Clear (CLEAR) Urine pH 6.0 (5-7) Ur Specific Gravit y 1.020 (1.005-1.030) Urine Protein Neg (Negative) Urine Glucose (UA) Norm (Normal) Urine Ketones Negative (Negative) Urine Blood Neg (Negative) Urine Nitrate Negative (Negative) Urine Bilirubin Neg (Negative) Urine Urobilinogen Norm (Negative) mg/dL Ur Leukocyte Payal ase Negative (Negative) Salicylates (3-10) mg/dL Urine Opiates Scre en Negative (Negative) ng/mL Acetaminophen (10-30) ug/mL Ur Barbiturates Sc reen Negative (Negative) ng/mL Ur Phencyclidine S crn Negative (Negative) ng/mL Ur Amphetamines Sc reen Negative (Negative) ng/mL U Benzodiazepines Scrn Negative (Negative) ng/mL Urine Cocaine Scre en Negative (Negative) ng/mL U Marijuana (THC) Screen Positive H (Negative) ng/mL Ethyl Alcohol (0-10) mg/dL 11/30/20 Range/Units 15:33 WBC (4.0-10.0) 10^3/ uL RBC (4.1-5.3) 10^6/u L Hgb (11.5-15.3) g/dL Hct (37.0-47.0) % MCV (81-99) fL MCH (28.0-34.0) pg MCHC (30.0-36.0) g/dL RDW (12.1-15.1) % Plt Count (130-400) 10^3/c mm MPV (7.4-10.4) fL Neut % (Auto) % Lymph % (Auto) % Florence % (Auto) % Eos % (Auto) % Baso % (Auto) % Neut # (Auto) (1.8-7.7) 10^3/u L Lymph # (Auto) (0.8-4.8) 10^3/u L Florence # (Auto) (0.2-0.9) 10^3/u L Eos # (Auto) (0.0-0.8) 10^3/u L Baso # (Auto) (0.0-0.1) 10^3/u L Nucleated RBC % (a uto) % Nucleated RBCs # /100WBC Sodium 139 (136-145) mmol/L Potassium 4.5 (3.5-5.1) mmol/L Chloride 102 (98-107) mmol/L Carbon Dioxide 21 L (22-29) mmol/L Anion Gap 20.5 H (5-19) BUN 14 (6-20) mg/dL Creatinine 0.5 (0.5-0.9) mg/dL GFR Calculation 130.6 H (90-130) mL/min Glucose 93 (65-115) mg/dL Calculated Osmolal ity 288 (285-295) mOsm/k g Calcium 9.6 (8.5-10.5) mg/dL Total Bilirubin 0.2 (0.15-1.2) mg/dL AST 15 (0-32) U/L ALT 15 (0-33) U/L Alkaline Phosphata se 135 H (35-105) IU/L Total Protein 7.3 (6.6-8.7) g/dL Albumin 4.3 (3.5-5.2) g/dL Globulin 3.0 (1.3-4.6) g/dL TSH 3.28 (0.27-4.20) uIU/ mL Urine Color (Yellow) Urine Appearance (CLEAR) Urine pH (5-7) Ur Specific Gravit y (1.005-1.030) Urine Protein (Negative) Urine Glucose (UA) (Normal) Urine Ketones (Negative) Urine Blood (Negative) Urine Nitrate (Negative) Urine Bilirubin (Negative) Urine Urobilinogen (Negative) mg/dL Ur Leukocyte Payal ase (Negative) Salicylates < 0.3 L (3-10) mg/dL Urine Opiates Scre en (Negative) ng/mL Acetaminophen < 5.0 L (10-30) ug/mL Ur Barbiturates Sc reen (Negative) ng/mL Ur Phencyclidine S crn (Negative) ng/mL Ur Amphetamines Sc reen (Negative) ng/mL U Benzodiazepines Scrn (Negative) ng/mL Urine Cocaine Scre en (Negative) ng/mL U Marijuana (THC) Screen (Negative) ng/mL Ethyl Alcohol < 10 (0-10) mg/dL Discharge Plan Discharge Patient Disposition: Admitted As Inpatient Clinical Impression: Depression, Schizophrenia, Suicidal ideation Condition: Stable Coding Level of Care Code ED Ramp Attendant for Flo Fwanum Exam Comprehensive
[2020-11-30] MEDS: LORazepam 1 mg Tablet PO (12:45)
[2020-11-30 12:55] LABS: Add Urine Microscopic? NO
[2020-11-30 13:13] LABS: Bilirubin Urine Neg (Negative); Blood Urine Neg (Negative); Glucose Urine UA Norm (Normal); Ketones Urine Negative (Negative); Leukocyte Esterase Urine Negative (Negative); Nitrate Urine Negative (Negative); Protein Urine Neg (Negative); Urine Appearance Clear (CLEAR); Urine Color Yellow (Yellow); Urobilinogen Urine Norm (Negative)
[2020-11-30 13:18] LABS: Amphetamines Screen Urine Negative (Negative); Barbiturates Screen Urine Negative (Negative); Benzodiazepines Screen Urine Negative (Negative); Cocaine Screen Urine Negative (Negative); Opiate Screen Urine Negative (Negative); PCP Screen Urine Negative (Negative); THC Screen Urine Positive (Negative)
[2020-11-30] MEDS: diphenhydrAMINE 50 mg/mL SDV 1mL 25 MG IVP (14:07)
--- NOTE | 2020-11-30 14:17 | PC.NURSE ---
Pt refused IV and IV fluids.
[2020-11-30 15:43] LABS: Basophils # 0.1 10^3/uL (0.0-0.1); Basophils % 0.6 %; Eosinophils # 0.2 10^3/uL (0.0-0.8); Eosinophils % 1.7 %; Hematocrit 47.3 % (37.0-47.0); Hemoglobin 14.7 g/dL (11.5-15.3); Lymphocytes # 2.1 10^3/uL (0.8-4.8); Lymphocytes % 19.4 %; Mean Corpuscular HGB Conc 31.1 g/dL (30.0-36.0); Mean Corpuscular Hemoglobin 30.1 pg (28.0-34.0); Mean Corpuscular Volume 96.7 fL (81-99); Mean Platelet Volume 10.7 fL (7.4-10.4); Monocytes # 0.7 10^3/uL (0.2-0.9); Neutrophils # 7.85 10^3/uL (1.8-7.7); Neutrophils % 71.9 %; Nucleated Red Blood Cells % 0 %; Platelet Count 297 10^3/cmm (130-400); Red Blood Count 4.89 10^6/uL (4.1-5.3); Red Cell Distribution Width 12.4 % (12.1-15.1); White Blood Count 10.9 10^3/uL (4.0-10.0)
[2020-11-30 16:20] LABS: Thyroid Stimulating Hormone 3.28 uIU/mL (0.27-4.20)
[2020-11-30 16:49] LABS: Acetaminophen < 5.0 ug/mL (10-30); Alanine Aminotransferase 15 U/L (0-33); Albumin Level 4.3 g/dL (3.5-5.2); Alcohol Level < 10 mg/dL (0-10); Alkaline Phosphatase 135 IU/L (35-105); Aspartate Amino Transferase 15 U/L (0-32); Blood Urea Nitrogen 14 mg/dL (6-20); Calcium 9.6 mg/dL (8.5-10.5); Carbon Dioxide 21 mmol/L (22-29); Chloride 102 mmol/L (98-107); Glomerular Filtration Rate 130.6 mL/min (90-130); Glucose 93 mg/dL (65-115); Osmolality Calculated 288 mOsm/kg (285-295); Salicylate < 0.3 mg/dL (3-10); Sodium 139 mmol/L (136-145); Total Bilirubin 0.2 mg/dL (0.15-1.2); Total Protein 7.3 g/dL (6.6-8.7)
[2020-11-30 16:50] LABS: Anion Gap 20.5 (5-19); Potassium 4.5 mmol/L (3.5-5.1)
[2020-12-01 06:00] VITALS: BP 108/79; PULSE 88; RESP 16; TEMP 36.3; O2SAT 93
[2020-12-01 07:44] LABS: HCG Qualitative Urine. Negative (Negative)
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
[2020-12-01] MEDS: citalopram 20 mg Tablet PO (11:32)
[2020-12-01] MEDS: cholecalciferol (vitamin D3) 1,000 unit Tablet 1000 UNIT PO (11:32)
[2020-12-01 13:37] VITALS: BP 104/72; PULSE 98; RESP 16; TEMP 36.8; O2SAT 96
[2020-12-01] MEDS: gabapentin 300 mg Capsule 600 MG PO ×2 (13:42→19:57)
[2020-12-01] MEDS: benztropine 1 mg Tablet PO (17:31)
[2020-12-01] MEDS: risperiDONE 2 mg Tablet PO (17:32)
[2020-12-01] MEDS: atorvastatin 40 mg Tablet 20 MG PO (19:57)
[2020-12-02 06:00] VITALS: BP 91/69; PULSE 86; RESP 15; TEMP 36.8; O2SAT 91
[2020-12-02] MEDS: acetaminophen 325 mg Tablet 650 MG PO ×2 (07:11→16:00)
[2020-12-02] MEDS: citalopram 20 mg Tablet PO (08:04)
[2020-12-02] MEDS: risperiDONE 2 mg Tablet PO (08:04)
[2020-12-02] MEDS: benztropine 1 mg Tablet PO ×3 (08:04→22:43)
[2020-12-02] MEDS: cholecalciferol (vitamin D3) 1,000 unit Tablet 1000 UNIT PO (08:05)
[2020-12-02] MEDS: gabapentin 300 mg Capsule 600 MG PO ×3 (08:05→20:44)
[2020-12-02] MEDS: OLANZapine 5 mg ODT PO ×2 (10:10→17:04)
--- NOTE | 2020-12-02 10:10 | PC.NURSE ---
PRN ZYPREXA ZYDIS 5 MG GIVEN PO PER PT C/O STATED AUDITORY HALLUCINATIONS. PT TOLD TOOLROOM CLERK THAT SHE WAS HEARING VOICES CALLING HER A WHORE WILL CONT TO MONITOR
--- NOTE | 2020-12-02 11:41 | PM.NPN ---
Subjective NPU Subjective: Interval history: Patient presented to the nursing station this morning stating that she had tried to choke herself with her she because of voices telling her to do so and was given as needed Zyprexa Zydis 5 mg with some relief. Currently denying any auditory hallucinations, denies any visual hallucinations Reports ongoing depressive symptoms, denies any current suicidal ideation but reports intermittent thoughts States that she has difficulty with sleep but reports that her appetite has been good Reports being compliant with medication and denies any medication side effects Mental Status Exam MSE Comments: Calm, cooperative, appropriately dressed, good eye contact Psychomotor activity is neither increased nor decreased, no agitation Speech is normal rate and volume, spontaneous, fair articulation, not pressured I feel depressed, full range, not labile Alert and oriented to person, place, time, situation Memory and concentration appear to be fair to intact per interview Thought process, linear, no flight of ideas, no looseness of associations Thought content, no delusions, does not appear to be attending to any internal stimuli, no suicidal or homicidal ideation Insight and judgment appear to be fair Vitals/I&O/Wt Last Vital Signs Temp 98.3 F 12/02/20 06:00 Pulse 86 12/02/20 06:00 Resp 15 12/02/20 06:00 BP 91/69 12/02/20 06:00 Pulse Ox 91 12/02/20 06:00 Weight last 48 hrs Weight 79.379 kg Data NPU : 11/30/20 15:33 11/30/20 15:33 A&P Assessment and plan (1) Suicidal ideation: Status: Acute (2) Schizophrenia: Status: Acute (3) Depression: Status: Acute (4) Methamphetamine dependence: Status: Acute (5) Cannabis abuse: Status: Acute Additional A&P Information Continues to report intermittent command auditory hallucinations telling her to harm herself as well as intermittent suicidal ideation. INCREASE to risperidone 2 mg daily, 3 mg at bedtime CONTINUE other medication, continue to monitor Involuntary Hold Information 96 Hour Hold: 96 Hour Involuntary Admission: No Attestations NPU Medical Necessity Statement*: Continues require psychiatric hospitalization secondary to intermittent suicidal ideation and psychotic symptoms needing ongoing observation and medication adjustment Coding Level of Care Code Acute Prototype Technician for [facility] Fw Diagnoses Suicidal ideation R45.851 Schizophrenia F20.9 Depression F32.9 Methamphetamine dependence F15.20 Cannabis abuse F12.10
[2020-12-02 14:00] VITALS: BP 96/66; PULSE 83; RESP 18; TEMP 36.7; O2SAT 90
--- NOTE | 2020-12-02 17:05 | PC.NURSE ---
PRN ZYPREXA 5 MG GIVEN PO PER PT REQUEST. PT HAS BEEN ASLEEP MOST OF THE DAY IN HER ROOM, MED SEEKING FOR THAT ZYPREXA ONCE UP FOR DINNER, ASKING FOR IT SEVERAL TIMES. DOES NOT APPEAR TO BE RESPONDING TO INTERNAL STIMULI CURRENTLY. WILL CONT TO MONITOR
[2020-12-02] MEDS: risperiDONE 1 mg Tablet 3 MG PO (20:43)
[2020-12-02] MEDS: atorvastatin 40 mg Tablet 20 MG PO (20:43)
[2020-12-02] MEDS: trazodone 50 mg Tablet PO (20:44)
[2020-12-02] MEDS: hyDROXYzine 25 mg Capsule 50 MG PO (20:45)
[2020-12-02 22:00] VITALS: BP 93/63; PULSE 80; RESP 16; TEMP 36.5; O2SAT 90
--- NOTE | 2020-12-02 22:28 | PC.NURSE ---
PM assessment Pt v/s WNL, HEART/LUNG SOUNDS ARE NORMAL. PT HAS BEEN SLEEPING SINCE 1900 AND DID NOT GET UP FOR SNACK. PT REFUSED TO SPEAK TO NURSE, ROLLED OVER. WILL CONTINUE TO MONITOR PT BEHAVIOR.
[2020-12-03] MEDS: OLANZapine 5 mg ODT PO (05:38)
--- NOTE | 2020-12-03 05:40 | PC.NURSE ---
Patient came to nurses station requesting a Zyprexa to make the voices quiet down . Offered a Vistaril but she said that does not work to tone down the voices, patient refused Vistaril.5mg Zyprexa given.
--- NOTE | 2020-12-03 05:41 | PC.NURSE ---
Behavior Pt came to the nurses station requesting medication to make the voices stop in her head. She asked for Zyprexa stating, it is the only medicine that is working for me. Med nurse notified
[2020-12-03 05:45] VITALS: BP 69/52; PULSE 120; RESP 18; TEMP 36.8; O2SAT 95
[2020-12-03] MEDS: citalopram 20 mg Tablet PO (08:13)
[2020-12-03] MEDS: gabapentin 300 mg Capsule 600 MG PO (08:13)
[2020-12-03] MEDS: risperiDONE 2 mg Tablet PO (08:13)
[2020-12-03] MEDS: cholecalciferol (vitamin D3) 1,000 unit Tablet 1000 UNIT PO (08:13)
[2020-12-03] MEDS: benztropine 1 mg Tablet PO (08:14)
--- NOTE | 2020-12-03 11:30 | PC.NURSE ---
INFLUENZA VACCINE 1 DOSE GIVEN PER PT REQUEST, INJECTION GIVEN IN RIGHT DELTOID. LOT [id number] EXP 05/11/21
--- NOTE | 2020-12-03 11:58 | P.DS_ITS ---
Diagnoses at Discharge Discharge Diagnosis (1) Suicidal ideation: Status: Acute (2) Schizophrenia: Status: Acute (3) Depression: Status: Acute (4) Methamphetamine dependence: Status: Acute (5) Cannabis abuse: Status: Acute Reason for Visit Reason for Visit: Suicidal ideation, command auditory hallucinations Hospital Course Hospital Course 50 year old female with a history of schizophrenia and longstanding substance abuse history with 20 years of IV drug use with last IV drug use a year ago presenting to the emergency department with suicidal gesture with worsening depressive symptoms and report of command auditory hallucinations. Patient had recently discharged from another inpatient facility but reported that she was having command auditory hallucinations and suicidal ideation prompting her to return to the emergency department at the time of her arrival to a substance rehabilitation facility in [facility]. Patient had recently been discharged from another inpatient psychiatric facility. Patient continued to report auditory hallucinations and suicidal ideation at the time of admission. Patient was started on risperidone which was titrated up to risperidone 2 mg daily, risperidone 3 mg at bedtime with some affect although patient continues to report some auditory hallucinations with some improvement and denied any suicidal ideation. She reported improvement in depressive symptoms and her functioning. Patient tolerated medication changes well with no reports of any medication side effects with only medication change from her previous hospitalization being the discontinuation of carbamazepine given patient's lack of compliance with follow-up and medication and the need for constant monitoring. Patient was having some restlessness with her legs and likely would have benefited from starting a low-dose propanolol but patient had refused and was requesting discharge and did not appear to pose an imminent threat of harm to self or others and no longer met criteria for an involuntary hold. Patient was not suicidal at the time of discharge and did not appear to pose an imminent threat of harm to self or others. Patient has home supply of medication other than medication change from carbamazepine to risperidone which will be prescribed at the time of discharge. Low to moderate risk of harm to self and others given no current suicidal ideation although patient continues to have some auditory loose Nations although she denies any command auditory destinations. Patient's risk may be elevated if she continues to abuse illicit substances or alcohol which may lead to unexpected, impulsive behavior. Risk mitigation included psychiatric hospitalization and observation, medication stabilization, recommendation to abstain from the use of alcohol and substances as well as coordinating for safe discharge. Patient was able to communicate her understanding of the need to abstain from the use of substances and alcohol as well as the need for compliance with her medication, medication management and substance counseling/treatment in order to further mitigate her risk of harm to self and others. Involuntary Hold Information 96 Hour Hold: 96 Hour Involuntary Admission: No Mental Status Exam MSE Comments: Appears older than stated age, sitting up on her bed, calm, cooperative, appropriately dressed, good eye contact Psychomotor activity is neither increased nor decreased, no agitation Speech is normal rate and volume, spontaneous, fair articulation, not pressured I feel better, full range, not labile Alert and oriented to person, place, time, situation Memory and concentration appear to be fair to intact per interview Thought process, linear, no flight of ideas, no looseness of associations Thought content, no delusions, does not appear to be attending to any internal stimuli, no suicidal or homicidal ideation Insight and judgment appear to be fair Discharge Data Vitals: Last Vital Signs Temp 98.2 F 12/03/20 05:45 Pulse 120 H 12/03/20 05:45 Resp 18 12/03/20 05:45 BP 69/52 12/03/20 05:45 Pulse Ox 95 12/03/20 05:45 Discharge Plan Discharge Patient Disposition: Home Condition: Stable Prescriptions: New risperidone 1 mg Tablet 3 mg PO BEDTIME Qty: 30 RF: 0 risperidone 2 mg Tablet 2 mg PO DAILY Qty: 30 RF: 0 Continued alendronate 70 mg tablet See Rx Instructions .ROUTE .COMPLEX RF: 0 trazodone 50 mg tablet 50 mg PO BEDTIME RF: 0 baclofen 20 mg tablet 20 mg PO TID PRN (Reason: Spasms) RF: 0 gabapentin 300 mg capsule 300 mg PO TID RF: 0 Discontinued carbamazepine 200 mg tablet 200 mg PO BID RF: 0 Discharge Orders: Discharge Order (Routine); Ordered 12/03/20 Ordered By: Meño Chauhan Referrals: Dr. Yuen [Other] - 12/15/20 (Follow up appointment for month Invega Sustenna injection. ) [facility] ([place], [place]) [Other] - 01/12/21 2:00 pm (This apt is Via Phone You will not need to show up, just be close to the phone to answer. ) Discharge Diet: Usual diet Discharge Activity: Resume usual activity Discharge Attestations NPU Time Spent in Discharge Care*: greater than 30 min Coding Level of Care Code Acute Licensed Surveyor for g Fwd Diagnoses Suicidal ideation R45.851 Schizophrenia F20.9 Depression F32.9 Methamphetamine dependence F15.20 Cannabis abuse F12.10
--- NOTE | 2020-12-03 12:08 | PM.NPTHER ---
NPU Therapy Progress Note Therapy Progress Note Date: 12/02/20 Time In: 17:35 Time Out: 17:40 Symptoms Reported: none but appears fatigued, depressed Mood: delusional/psychotic but not agitated, polite Progress Note: [employer] FINISHER asked Marcela if she wanted to talk today and she initially says yes and begins making very psychotic statements such as i'm the daughter of a [place] ramon and goes on in convoluted speech about how ultimately to save the world she must be killed. She reports this is a lot weighing on her and has caused her to be depressed. She abruptly says she is done speaking and would like to rest Intervention: Reflective listening Reported Goals Before Discharge: none reported
[2020-12-03 12:19] VITALS: BP 69/52; PULSE 120; RESP 18; TEMP 36.8; O2SAT 95
== END 2020-12-03 13:55 | disposition home or self-care (01) | DRG 885 ==
LOC: ER 17:17 → NP 17:31
PROVIDERS: Admitting Provider Psychiatry & Neurology Psychiatry; Emergency Provider Family Medicine; Visit Provider Psychiatry & Neurology Psychiatry
DX: F20.9 Schizophrenia, unspecified (principal); R45.851 Suicidal ideations; F15.20 Other stimulant dependence, uncomplicated; F32.9 Major depressive disorder, single episode, unspecified; F12.10 Cannabis abuse, uncomplicated
CPT/HCPCS: 12345; 36415; 80053; 80306; 80307; 81003; 81025; 84443; 85025; 90471; 90686; 93005; 99284; J1200